=== PATIENT | male | born 1935 | race Caucasian/White ===

== ENCOUNTER 2016-04-21 09:56 | Emergency (ER) | payer OTHER ==
[2016-04-21 10:02] VITALS: TEMP 97.9; O2SAT 94
--- NOTE | 2016-04-21 10:30 | EDPHY ---
H & P Stated Complaint: +SOB +sore throat 1 wk Source: Patient, Family Exam Limitations: No limitations - Personal History Current Tetanus/Diphtheria Vaccine: Yes Current Tetanus Diphtheria and Acellular Pertussis (TDAP): Yes - Medical/Surgical History Hx Asthma: No Hx Chronic Respiratory Disease: Yes Hx Diabetes: No Hx Cardiac Disease: Yes Hx Renal Disease: No Hx Cirrhosis: No Hx Alcoholism: No Hx HIV/AIDS: No Hx Splenectomy or Spleen Trauma: No Other PMH: MVR, CHF, COPD - Social History Smoking Status: Never smoked HPI/ROS: CHIEF COMPLAINT: Cough, congestion, runny nose, sore throat HISTORY OF PRESENT ILLNESS: patient is one-week history of the above. previously had them as had been for 2-3 weeks. He has gradual onset of this and constant duration. Mild to moderate. He feels that he has a cold. He has no chest pain. He has minimal cough, unchanged from his baseline COPD status. No shortness of breath change from his baseline status. No fever or chills. No abdominal pain. No headache or dizziness. Symptoms have not improved with the Nasal saline that he was prescribed by his primary care physician's office last week. he did finish a course of Levaquin last Monday previous to the onset of the symptoms for previous infection suspected to be related to his COPD. No other associated complaints or modifying factors. Dependent on 2-3 L nasal cannula during the day and CPAP with oxygen at night but REVIEW OF SYSTEMS: Ten systems reviewed and are negative unless otherwise noted in the HPI EXAMINATION General Appearance: Alert, no distress Head: normocephalic, atraumatic Eyes: Pupils equal and round, no conjunctival pallor or injection ENT, Mouth: Mucous membranes moist. Uvula midline. No erythema or edema of the pharynx or posterior pharynx. there is tenderness to palpation of the maxillary and frontal sinuses. Neck: Normal inspection, supple, non-tender Respiratory: Lungs Has scattered rhonchi. No consolidation, wheezing or diminishment Cardiovascular: Regular rate and rhythm. Harsh mechanical murmur. Pulses intact distally Gastrointestinal: Abdomen is soft and nontender. No tympany, rigidity. Nonacute abdomen. Back: non-tender, no bony abnormalities Neurological: A&O, nonfocal Skin: Warm and dry, no rash Extremities: Nontender, no pedal edema Psychiatric: Mood and affect normal DIFFERENTIAL DIAGNOSES: Including but not limited to Upper respiratory infection, sinusitis, pharyngitis , bronchitis, pneumonia, influenza MDM: Upper respiratory complaints and possibility of a sinusitis. His lungs are likely at baseline without any evidence of pneumonia or consolidation on auscultation. Chest x-ray is pending at this time. Influenza has also been ordered. His vital signs were well within normal limits and he is in no acute distress. This is likely a viral etiology 12:15 p.m. I have re-evaluated the patient. He remains hemodynamically stable on his baseline oxygen nasal cannula. X-ray reveals bronchitis without pneumonia. This is consistent with examination. He also has the appearance of an upper respiratory infection. I have recommend that we discharge him home with steroids, 1st dose here. Follow up with primary care physician for definitive care. The patient And spouse are comfortable with this plan. I will contact his primary care physician to discuss outpatient management. 12:20 p.m. I discussed the case with the on-call physician for the patient, Dr. Ortega. She is comfortable with my plan of discharge home with prednisone. She is also comfortable with not providing any further antibiotics, given that he finished a round of Levaquin on Monday. He is to contact their office for follow-up early next week. Patient And spouse are comfortable with this plan. SUPERVISION: This patient was independently evaluated without the aide of supervising physician. (Vinod Manriquez) Constitutional: Initial Vital Signs Temperature (C) 97.9 F 04/21/16 09:59 Heart Rate 98 04/21/16 09:59 Respiratory Rate 16 04/21/16 09:59 Blood Pressure 122/86 H 04/21/16 09:59 O2 Sat (%) 94 04/21/16 09:59 O2 Delivery Mode Nasal Cannula O2 (L/minute) 3 Allergies/Adverse Reactions: No Known Allergies Allergy (Unverified 12/26/14 08:01) Home Medications: Medication Instructions Recorded Advair 100/50 (*) 04/21/16 Albuterol 04/21/16 Aldactone 25 MG (*) 04/21/16 Amiodarone 150 mg/100 ml-D5w 04/21/16 Atorvastatin Calcium 04/21/16 Eliquis 04/21/16 Fluticasone Nasal 04/21/16 Levothyroxine 04/21/16 Losartan Potassium 04/21/16 Metoprolol Succinate 04/21/16 Ranitidine HCl 04/21/16 SIMVASTATIN 04/21/16 Spiriva Handihaler 04/21/16 Torsemide 04/21/16 Venlafaxine 75MG (*) 04/21/16 predniSONE 60 mg PO DAILY #12 tab 04/21/16 Medical Decision Making ED Course/Re-evaluation: The patient was evaluated and managed by the physician's head start assistant teacher. My cosignature indicates that I reviewed the chart and I agree with the findings and plan of care as documented. I am the secondary supervising physician. ( Renata Rodriguez) - Data Points Laboratory Results: 04/21/16 10:31 Influenza Typ A,B (DFA) NEGATIVE FOR FLU (NEGATIVE) Medications Given: Discontinued Medications Prednisone (Prednisone) 60 mg PO EDNOW ONE Stop: 04/21/16 12:10 Last Admin: 04/21/16 12:14 Dose: 60 mg Departure - Departure Disposition: Home, Routine, Self-Care Clinical Impression: Chronic bronchitis with COPD (chronic obstructive pulmonary disease) Upper respiratory infection Qualifiers: URI type: unspecified viral URI Qualifier Code: (J06.9) Acute upper respiratory infection, unspecified Acute sinusitis Qualifiers: Sinusitis location: frontal Recurrence: not specified as recurrent Qualifier Code: (J01.10) Acute frontal sinusitis, unspecified Condition: Good Instructions: Acute Bronchitis (ED), Upper Respiratory Infection (ED) Additional Instructions: Medications as prescribed. Follow up with primary care physician at their recommendation. Contact their office for appointment. ER for worsening shortness of breath or cough. ER for any chest pain. Referrals: Audi Parikh MD [Primary Care Provider] - As per Instructions Prescriptions: predniSONE 60 mg PO DAILY #12 tab
--- NOTE | 2016-04-21 11:48 | DX ---
Chest, One View Portable at 1041 hours on April 21, 2016 History: Cough. COPD, chest tightness. Comparison: March 2016. Findings: Cardiac silhouette is mildly enlarged. Median sternotomy wires and valvuloplasty noted. Pa tchy linear scarring left lower lobe. Bilateral peribronchial thickening. No pneumonia, congestive he art failure, pleural effusion, or pneumothorax. Impression: 1. Bronchitis. 2. No definite focal pneumonia.
[2016-04-21] MEDS ORDERED: predniSONE 20 MG TAB PO ONE (12:09)
[2016-04-21 12:43] VITALS: BP 140/78; PULSE 70; RESP 14
== END 2016-04-21 12:42 | disposition home or self-care (01) ==
DX: J44.9 Chronic obstructive pulmonary disease, unspecified (principal); J06.9 Acute upper respiratory infection, unspecified; J01.10 Acute frontal sinusitis, unspecified; I50.9 Heart failure, unspecified

== ENCOUNTER → 2016-05-23 | Outpatient (CLI) | payer OTHER | LOC: BHFA 11:00 | PROVIDERS: ATTEND Internal Medicine Cardiovascular Disease | DX: I47.2 Ventricular tachycardia (principal) ==